=== PATIENT | female | born 1995 | race Two or more races ===

== ENCOUNTER 2022-01-03 13:15 | Inpatient (IN) | payer OTHER ==
[~2022-01-03] VITALS: Ht 160 cm; Wt 68.0 kg
[2022-01-04] MEDS ORDERED: ADULT LOW DOSE81 M1 (06:21)
== END 2022-01-06 12:03 | disposition home or self-care (01) | DRG 807 ==
LOC: OB/GYN 01-04 05:09 → LDR 01-04 05:09 → OB/GYN 01-04 12:26 → LDR 01-11 13:15
PROVIDERS: ADMIT Obstetrics & Gynecology; ATTEND Obstetrics & Gynecology
PROC: 10E0XZZ Delivery of Products of Conception, External Approach (ICD-10-PCS; principal; 2022-01-04)
PROC: 4A1HXCZ Monitoring of Products of Conception, Cardiac Rate, External Approach (ICD-10-PCS; 2022-01-04)
PROC: 0UQG7ZZ Repair Vagina, Via Natural or Artificial Opening (ICD-10-PCS; 2022-01-04)
DX: O71.4 Obstetric high vaginal laceration alone (principal); Z37.0 Single live birth; Z3A.39 39 weeks gestation of pregnancy; Z20.822 Contact with and (suspected) exposure to COVID-19